=== PATIENT | male | born 1985 | race Caucasian/White ===

== ENCOUNTER 2017-01-18 05:10 | Emergency (ER) | payer OTHER ==
[~2017-01-18 05:10] MED LIST: CIPRO PO; LORTAB 5/500 TA1 TA2 PO
[2017-01-18 07:08] LABS: URINE SOURCE CLEAN CATCH
[2017-01-18 07:13] LABS: URINE APPEARANCE CLEAR; URINE BILIRUBIN NEG (NEG); URINE BLOOD 3+ (NEG); URINE COLOR YELLOW; URINE GLUCOSE NEG (NEG); URINE KETONE NEG (NEG); URINE LEUKOCYTE ESTERASE NEG (NEG); URINE NITRATE NEG (NEG); URINE PH 5.5 (5-8); URINE PROTEIN NEG (NEG); URINE SPECIFIC GRAVITY 1.017 (1.003-1.035); URINE UROBILINOGEN 0.2 MG/DL (NEG)
[2017-01-18 07:14] LABS: URBCS1 AUWI 25-50 /[HPF] (0-2); URINE BACTERIA AUWI NEG (NEGATIVE); URINE SQUAMOUS EPITHELIAL CELL NONE SEEN /[HPF]; UWBCS1 AUWI 0-2 (0-5)
[2017-01-18 07:15] LABS: CULTURE INDICATED? NO
[2017-01-20 07:19] LABS: CHLAMYDIA TRACH Not Detected (Not Detected); N GONOR Not Detected (Not Detected)
== END 2017-01-18 07:35 | disposition home or self-care (01) ==
LOC: CED 05:10
PROVIDERS: Emergency Medicine
DX: N41.0 Acute prostatitis (principal)
CPT/HCPCS: 81003; 87491; 87591; 96372; 99283; J0696